=== PATIENT | female | born 1965 ===

== ENCOUNTER 2019-11-26 05:05 | Day surgery (SDC) | payer OTHER ==
[~2019-11-26 05:05] MED LIST: ESTAZOLAM2 MG PO; HYZAAR 100-12.1 EACH PO; LEVOTHYROXINE25 MCG PO
[2019-11-26] MEDS ORDERED: DOXYCYCLINE HY100 MG PO (08:39)
== END 2019-11-26 14:20 | disposition home or self-care (01) ==
LOC: CIR.AMB 05:05 → ADM 09:00 → CIR.AMB 09:00
DX: N84.0 Polyp of corpus uteri (principal); D25.0 Submucous leiomyoma of uterus